=== PATIENT | female | born 1980 | race American Indian/Alaskan Native ===

== ENCOUNTER 2021-06-15 13:15 | Outpatient (CLI) | payer OTHER ==
--- NOTE | 2021-06-16 10:52 | Mammography Report ---
BILATERAL DIGITAL SCREENING MAMMOGRAM WITH CAD WITH TOMOSYNTHESIS HISTORY: Screening mammogram. History of benign right breast biopsy. TECHNIQUE: Routine digital mammographic imaging performed. This examination was interpreted with mario pimentel benefit of Computer-aided Detection analysis. Tomosynthesis images were acquired and reviewed. COMPARISON: None. This is a baseline exam. FINDINGS: Breast Density: scattered fibroglandular appearance of the breast tissue. Digital CC and MLO views demonstrate an asymmetry in the right inferior breast at middle depth. This is best seen on the right MLO matheus image 20. No suspicious findings within the left breast. IMPRESSION: Right inferior breast asymmetry which is seen best on MLO tomosynthesis images. Additional mammograp hic tomosynthesis images (spot MLO, full ML) are recommended for further evaluation with possible sub sequent targeted ultrasound. BIRADS 0-Incomplete: Needs additional imaging evaluation NOTE: WE WILL RECALL THE PATIENT FOR THIS ADDITIONAL EVALUATION. FURTHER INFORMATION: According to the [employer], yearly mammograms are recommend ed starting at age 40 and continuing as long as a woman is in good health. Clinical Breast Exams shou ld be part of a periodic health exam-about every 3 years for women in their 20s and 30s and every yea r for women 40 and over. Breast self exam is an option for women starting in their 20s. Any breast ch reno noted on a breast self exam should be reported promptly to the patient's healthcare provider. Br east MRI is recommended for women with an approximately 20-25% or greater lifetime risk of breast can cer, including women with a strong family history of breast or ovarian cancer and women who have been treated for Hodgkin's disease. A negative Mammography report should not discourage follow up or biopsy of a clinically significant f inding and/or abnormality. Dense breast tissue may obscure small neoplasms. The patient will be entered into a reminder system with a target due date for the next screening mamm ogram. Signer Name: Christiano West MD Signed: 06/16/2021 10:47 AM Workstation Name: [id number]
== END 2021-06-15 13:16 | disposition home or self-care (01) ==
LOC: SPVWC 13:15
PROVIDERS: ATTEND Family Medicine
DX: Z12.31 Encounter for screening mammogram for malignant neoplasm of breast (principal)
CPT/HCPCS: 77063; 77067